=== PATIENT | male | born 1965 | race Caucasian/White ===

== ENCOUNTER 2023-04-25 22:22 | Emergency (ER) | payer MEDICAID ==
[~2023-04-25] VITALS: Ht 165.1 cm; Wt 66.0 kg
[2023-04-25 22:31] VITALS: BP 140/80; O2SAT 97
[2023-04-26 02:32] VITALS: PULSE 94; RESP 18; TEMP 98.1
== END 2023-04-26 02:34 | disposition home or self-care (01) ==
LOC: ER 22:22
DX: R13.10 Dysphagia, unspecified (principal); I10 Essential (primary) hypertension; Z86.73 Personal history of transient ischemic attack (TIA), and cerebral infarction without residual deficits
CPT/HCPCS: 70490; 71250; 99284

== ENCOUNTER 2023-11-01 22:08 | Emergency (ER) | payer MEDICAID ==
[~2023-11-01] VITALS: Ht 172.7 cm; Wt 73.0 kg
[2023-11-01 22:12] VITALS: BP 157/100; TEMP 98.4; O2SAT 98
[2023-11-02 00:01] VITALS: PULSE 88; RESP 18
== END 2023-11-02 00:41 | disposition home or self-care (01) ==
LOC: ER 22:08
DX: T17.928A Food in respiratory tract, part unspecified causing other injury, initial encounter (principal); W44.F3XA Food entering into or through a natural orifice, initial encounter; Y93.89 Activity, other specified; Y92.89 Other specified places as the place of occurrence of the external cause; Y99.8 Other external cause status
CPT/HCPCS: 70490; 71250; 99284